=== PATIENT | female | born 1980 | race African-American/Black ===

== ENCOUNTER 2017-03-10 11:18 | Inpatient (IN) ==
[2017-03-10 12:25] LABS: AGAP 17; ALBUMIN 3.8 g/dL (3.5-5.0); ALKALINE PHOSPHATASE 53 U/L (32-104); BUN 7 mg/dL (8-22); CALCIUM 8.9 mg/dL (8.8-10.2); CHLORIDE 103 mmol/L (98-107); COSMO 279; GOT 18 U/L (10-30); GPT 20 U/L (10-36); POTASSIUM 3.6 mmol/L (3.5-5.1); SODIUM 140 mmol/L (136-145); TCO2 20 mmol/L (25-35); TOTAL BILIRUBIN 0.76 mg/dL (0.20-1.00); TOTAL PROTEIN 6.8 g/dL (6.3-8.3)
[2017-03-10 12:31] LABS: HEMOGLOBIN 3.4 g/dL (12.0-16.0)
--- NOTE | 2017-03-10 12:31 | Diag Imaging Result Doc PS360 ---
EXAM: CHEST-2 VIEWS INDICATION: cough TECHNIQUE: 2 views COMPARISON: None. FINDINGS: At the medial left lung base there is a thick-walled large air density lesion. This may actually represent a hiatal hernia. I suppose a thick-walled cavitary lesion is possible, however. The lungs are grossly clear, otherwise. There is no discrete pleural fluid collection or pneumothorax. The cardiomediastinal silhouette and central vasculature are grossly unremarkable. IMPRESSION: Hiatal hernia versus thick-walled cavitary lesion at the medial left lung base projecting behind the heart. Electronically signed by Nael Meeks 03/10/2017 12:29 PM
[2017-03-10 12:32] LABS: BASO% 0.6 % (0.0-0.8); EOS# 0.06 X1000 (0.0-0.7); EOS% 0.9 % (0.0-10.0); HEMATOCRIT 12.8 % (37.0-47.0); LYMPH# 2.21 X1000 (1.2-3.4); LYMPH% 32.1 % (20.5-51.1); MANUAL DIFF NEEDED? NO; MCH 16.7 PG (27-31); MCHC 26.6 g/dL (33-37); MCV 62.7 FL (81-99); MONO# 0.82 X1000 (0.11-0.59); MONO% 11.9 % (1.7-9.3); MPV 9.9 FL (7.4-10.4); NEUT% 54.5 % (42.2-75.2); PLT 481 X1000 (130-400); RBC 2.04 XMIL (4.2-5.4)
[2017-03-10 12:33] LABS: ALLEN TEST YES; BLOOD TYPE ARTERIAL; DRAW SITE R RADIAL; METHB 0.6 % (0.0-1.5); O2(CT) 5.1 mL/dL (15.0-23.0); PCO2(98.6) 31 mmHg (35-45); PO2(98.6) 86 mmHg (60-100); SAMPLE BLOOD; SAO2 99.6 % (95.0-100.0); THB 3.6 g/dL (11.5-17.4); pH(98.6) 7.49 (7.35-7.45)
[2017-03-10 12:34] LABS: MODALITY ROOM AIR
[2017-03-10] MEDS ORDERED: PEPCID IV ONE (12:35)
[2017-03-10] MEDS ORDERED: PROTONIX IV ONE (12:35)
[2017-03-10] MEDS ORDERED: SODIUM CHLORIDE 0.9% INJ ONE ×2 (12:35)
--- NOTE | 2017-03-10 12:53 | PROVIDER DOCUMENTATION ---
This chart was entered by Paula Cao Scribe, acting as scribe for Charles Rebolledo MD. HPI-General Adult - General Chief Complaint: Shortness of Breath Stated Complaint: RT SIDE PAIN,TIRED EASILY Time Seen by Provider: 03/10/17 11:36 Source: patient Allergies/Adverse Reactions: Patient Allergies Allergy/AdvReac Type Severity Reaction Status Date / Time No Known Allergies Allergy Verified 03/10/17 12:17 Home Medications: Home Medication List Medication Instructions Recorded Confirmed Last Taken Type NK [No Home Medications] 03/10/17 03/10/17 Unknown History - History of Present Illness -Gen Adult Nature of Presenting Problems: Pt is a 36 year old female who came to the ED with a cc of SOB and weakness for one week. Pt reports she has been having black stool Location of Pain/Injury: reports: none Pain Radiation: reports: no radiation Quality of Pain: reports: none Onset/Duration: reports: 1 week ago Timing: reports: still present Associated Symptoms: reports: shortness of breath, weakness Similar Symptoms Previously?: No Recently seen or treated by another doctor?: No Review of Systems - Adult - REVIEW OF SYSTEMS - ADULT Constitutional: denies: chills, fever Eyes: reports: no symptoms reported Ears, Nose, Mouth & Throat: reports: no symptoms reported Cardiovascular: denies: chest pain, irregular heart rate Respiratory: reports: cough, shortness of breath. denies: pleurisy, wheezing Gastrointestinal: reports: other (black stool). denies: diarrhea, nausea Genitourinary: denies: dysuria, urgency Musculoskeletal: denies: bone pain, joint swelling Integumentary: reports: no symptoms reported Neurological: reports: no symptoms reported Psychiatric: reports: no symptoms reported Endocrine: reports: no symptoms reported Hematologic/Lymphatic: reports: no symptoms reported Allergic/Immunologic: reports: no symptoms reported All Other Systems: Reviewed and Negative Past History - Adult - PAST MEDICAL HISTORY-ADULT Review of Records: reports: Old Records Reviewed, Nursing Assessment Review Major Childhood Illnesses: reports: denies history Cardiovascular: reports: denies history Respiratory: reports: denies history Gastrointestinal: reports: denies history Obstetrical/Gynecological: reports: denies history Genitourinary: reports: denies history Musculoskeletal: reports: denies history Neurological: reports: denies history Endocrine/Immune: reports: denies history Other Conditions: reports: denies history - IMMUNIZATION STATUS Childhood Immunizations: See Nurse Assessment Flu Vaccine: See Nurse Assessment - FAMILY HISTORY Family History: reviewed, not pertinent Physical Exam-General - PHYSICAL EXAM-ADULT Initial Vital Signs Reviewed: Yes - CONSTITUTIONAL General Appearance: appears well, alert, no apparent distress - EYES Eyes: pale conjunctivae - HEAD, EARS, NOSE, MOUTH & THROAT HENMT: normocephalic/atraumatic, moist mucous membranes - NECK Neck: non-tender, full range of motion - RESPIRATORY Respiratory: chest non-tender, crackles - CARDIOVASCULAR Cardiovascular: normal peripheral pulses, regular rate, rhythm - GASTROINTESTINAL (ABDOMEN) Abdominal Exam: normal bowel sounds, non tender, soft - MUSCULOSKELETAL Back Exam: normal inspection, no CVA tenderness Extremity: normal range of motion, non-tender - SKIN Integumentary: normal color, normal turgor - NEUROLOGIC Neurologic: grossly normal - PSYCHIATRIC Psych/Mental Status: normal mood/affect, normal thought content, normal thought process, oriented x 3 Progress - PLAN OF CARE/RESULTS Progress/Plan/Lab Results: Vital Signs - 8 hr 03/10/17 11:24 Temperature 97.9 F Pulse Rate 92 H Respiratory Rate 20 Blood Pressure 149/66 O2 Sat by Pulse Oximetry 100 Orders Category Date Time Status Saline Loc NOW Care 03/10/17 11:46 Active CHEST-2 VIEWS [RAD] Stat Exams 03/10/17 11:46 Taken ABG [RESP] Routine Lab 03/10/17 11:46 Ordered BLOOD CULTURE [BLDCUL] Stat Lab 03/10/17 12:09 Ordered CBC WITH DIFF [HEME] Stat Lab 03/10/17 11:45 Results COMPREHENSIVE METABOLIC PANEL [CHEM] Stat Lab 03/10/17 11:45 Received Result Diagrams: 03/10/17 11:45 03/10/17 11:45 - EKG 1 Time of EKG reading by physician:: 11:32 EKG Read and Signed by:: Parvez Montelongo EKG Interpretation (*Must complete 3 of following elements*): Normal Rate: 97 Rhythm: NSR - XRAY 1 XRAY Study: Chest Impression: Abnormal XRAY Interpretation: hiatal hernia - CONSULTS/PCP/HOSPITALIST Notification Time Discussed: 12:48 (Spoke with , did not have hospitalist name) Reason/Comments: Acute Gi bleed Consult Disposition: Admit Departure - Departure Date of Disposition Decision: 03/10/17 Time of Disposition Decision: 12:51 DIAGNOSIS: Iron deficiency anemia due to chronic blood loss, Hiatal hernia, Melena Disposition: ADMITTED INPATIENT 09 Certified Medical Emergency: Emergent Condition: Fair Referrals and Follow-Ups: None,PCP [Primary Care Provider] - - Critical Care Note This patient required my direct & personal management of CC.: No Attestation - Physician/ ROSAS Attestation Patient care was provided by Advanced Practice Provider:: No The physician spent face to face time with patient:: Yes Advanced Practice Provider documentation review:: Supervising physician onsite and consulted in the evaluation and care of this patient. The physician did have a face to face encounter with the patient. This chart was documented by the indicated scribe, (Paula Cao Scribe) and accurately reflects the services I performed and decisions made by me, Charles Rebolledo MD, as attested by the provider's signature.
[2017-03-10 12:55] LABS: RETIC% 1.87 % (0.8-2.1); RETIC-HE 13.4 PG (28.2-36.6)
[2017-03-10 13:18] LABS: IRON SATURATION 2 %; TIBC 454 ug/dL
[2017-03-10 13:22] LABS: TOTAL IRON 7 ug/dL (49-151); UNBOUND IRON 447 ug/dL (112-346)
[2017-03-10] MEDS ORDERED: NS 500 ML ONE ×2 (13:22→14:43)
[2017-03-10] MEDS ORDERED: ZOFRAN IV PRN (14:23)
[2017-03-10] MEDS ORDERED: PROTONIX 80 MG in NS 80 ML IV ONE (15:00)
--- NOTE | 2017-03-10 15:28 | EKG Report ---
Test Performed on : 03/10/2017 11:32:06 AM Test Reason : NO EKG ORDER Blood Pressure : / mmHG Vent. Rate : 097 BPM Atrial Rate : 097 BPM P-R Int : 152 ms QRS Dur : 076 ms QT Int : 362 ms P-R-T Axes : 038 013 034 degrees QTc Int : 459 ms Normal sinus rhythm. Normal ECG No previous ECGs available Unconfirmed Result
--- NOTE | 2017-03-10 15:54 | HISTORY AND PHYSICAL ---
PRIMARY CARE PHYSICIAN: None. CHIEF COMPLAINT: Weakness, shortness of breath. HISTORY OF PRESENT ILLNESS: This is a 36-year-old, female with a negative health history who presented to the emergency room complaining of about a week of black stools as well as dyspnea on exertion that has increased over the last 4 days. She states now that she can walk about 15 feet and become short of breath. If she walks much farther she states she does get dizzy. She can stop and rest and symptoms will go away. She denies any orthopnea, PND. She denies any prior episodes of melena or red stools. No coffee-ground emesis or vomiting blood. She does continue to have menstrual periods and she states that they have been unchanged going 2-3 days, and they are not exactly heavy. PAST MEDICAL HISTORY: Sickle cell trait. PAST SURGICAL HISTORY: Denies. SOCIAL HISTORY: Denies alcohol, tobacco, or illicit drug use. ALLERGIES: No known drug allergies. HOME MEDICATIONS: None. REVIEW OF SYSTEMS: A 14 point review of systems discussed with patient. Pertinent positives stated in HPI. She denied palpitations, chest pain, syncope, productive cough, fever, chills, any night sweats, persistent cough, any black or bloody vomitus, any bloody stools, any hematuria, dysuria, frequency, urgency. PHYSICAL EXAMINATION: GENERAL: This is a 36-year-old, female, who is sitting up in the bed with no distress. VITAL SIGNS: Blood pressure is 134/78 with a heart rate of 91, respirations are 15, temperature is 98.2 degrees with room air saturations of 99%-100%. HEENT: Head is normocephalic, atraumatic. Pupils are equal, round, react to light. EOMs are intact. Sclerae are anicteric, they are pale, with pale mucous membranes. NECK: Supple. Trachea midline. CARDIOVASCULAR: Regular rate and rhythm. S1, S2 appreciated. PULMONARY: She does have some crackles at the bases. Chest rises and falls symmetrically to respiration. No increased work of breathing noted. GASTROINTESTINAL: Soft, nontender, nondistended. Bowel sounds in all 4 quadrants. MUSCULOSKELETAL: Good range of motion of joints. BACK: No CVAT. No spine tenderness. SKIN: Warm and dry with good turgor. EXTREMITIES: No clubbing, cyanosis, or edema. Calves nontender. Pulses are palpable x4. NEUROLOGIC: She is alert and oriented x3. Cranial nerves 2-12 grossly intact. DIAGNOSTICS: WBC is 6.8, with hemoglobin 3.4, hematocrit 12.8, and platelets of 481,000. Sodium is 140, potassium 3.6, BUN 7, creatinine 1.1, with a glucose of 131. TIBC is 454, with iron of 7. Vitamin B12 430, folate 11.9. ASSESSMENT: 1. Acute gastrointestinal bleed. 2. Iron deficiency anemia due to chronic blood loss. 3. Dyspnea on exertion secondary to #1. 4. Melena times 4-5 days. 5. Hiatal hernia per chest x-ray. PLAN: She will be admitted to the hospital, placed on telemetry. She has been transfused 2 units of blood in the emergency room, a third is pending. We will recheck an hemoglobin and hematocrit at 8 o'clock tonight. She will be n.p.o. with ice chips, a Protonix drip. We will Hemoccult all stools. Of course, we will use sequential compression devices for deep venous thrombosis prophylaxis, giving no anticoagulation, and Protonix drip for gastrointestinal prophylaxis. Gastroenterology will be consulted. Further treatments pending hospital course. Dictated by LESLYE Aponte for Mark Hendrickson MD cc: LESLYE Aponte MD
[2017-03-10] MEDS: PROTONIX 80 MG in NS 80 ML IV SCH (18:30)
[2017-03-10 22:31] LABS: HEMATOCRIT 19.1 % (37.0-47.0); HEMOGLOBIN 5.6 g/dL (12.0-16.0)
[2017-03-10] MEDS: ICAR-C PO SCH (23:28)
[2017-03-10] MEDS: NS 1,000 ML IV SCH (23:29)
[2017-03-11] MEDS: PROTONIX 80 MG in NS 80 ML IV SCH ×3 (02:20→22:33)
[2017-03-11 07:05] LABS: HEMATOCRIT 24.1 % (37.0-47.0); HEMOGLOBIN 7.4 g/dL (12.0-16.0); MCH 22.8 PG (27-31); MCHC 30.7 g/dL (33-37); MCV 74.2 FL (81-99); MPV 9.3 FL (7.4-10.4); RBC 3.25 XMIL (4.2-5.4)
[2017-03-11 07:13] LABS: AGAP 11; BUN 7 mg/dL (8-22); CALCIUM 8.4 mg/dL (8.8-10.2); CHLORIDE 105 mmol/L (98-107); COSMO 275; POTASSIUM 4.1 mmol/L (3.5-5.1); SODIUM 139 mmol/L (136-145); TCO2 23 mmol/L (25-35)
[2017-03-11] MEDS: ICAR-C PO SCH ×2 (08:41→22:34)
[2017-03-11 13:05] LABS: HEMATOCRIT 24.7 % (37.0-47.0); HEMOGLOBIN 7.7 g/dL (12.0-16.0)
[2017-03-11 18:00] LABS: HEMATOCRIT 27.2 % (37.0-47.0); HEMOGLOBIN 8.4 g/dL (12.0-16.0)
[2017-03-11] MEDS: NS 1,000 ML IV SCH ×2 (18:18→22:33)
--- NOTE | 2017-03-11 21:01 | PROGRESS NOTE ---
DATE: 03/11/2017 SUBJECTIVE: The patient describes no further bleeding. OBJECTIVE: Vital Signs: Blood pressure is 131/75, heart rate 73, respiratory rate 18, temperature 98.4. Cardiovascular: Regular rate and rhythm. Pulmonary: Bilateral breath sounds. Clear to auscultation. Gastrointestinal: Soft, nontender, nondistended. Bowel sounds are positive. Extremities: No clubbing or cyanosis. Lymphatics: No peripheral edema. Neurological: Nonfocal. LABORATORY DATA: Her hemoglobin and hematocrit has come up to 8 and 27. That is after 5 units of blood. PROBLEM LIST: 1. Gastrointestinal bleed. Dr. Muhammad has evaluated the patient. She is on Protonix. Plan for EGD, possible colonoscopy tomorrow, and we will clinically monitor. She is on IV proton pump inhibitor. 2. Anemia, symptomatic, iron deficiency. We will need to start iron when she stabilizes. I am going to go ahead and start some iron on her, but Dr. Muhammad has evaluated and is also concerned about possibly a WHEEL PRESSER source of bleeding, so we will continue to follow and pursue pelvic ultrasound tomorrow. DISPOSITION: Pending clinical course and endoscopic findings. cc: Mark Hendrickson MD
[2017-03-12 01:15] LABS: HEMATOCRIT 25.5 % (37.0-47.0); HEMOGLOBIN 7.9 g/dL (12.0-16.0)
[2017-03-12 06:24] LABS: AGAP 12; BUN 8 mg/dL (8-22); CALCIUM 8.6 mg/dL (8.8-10.2); CHLORIDE 108 mmol/L (98-107); COSMO 284; POTASSIUM 4.3 mmol/L (3.5-5.1); SODIUM 143 mmol/L (136-145); TCO2 23 mmol/L (25-35)
[2017-03-12] MEDS: PROTONIX 80 MG in NS 80 ML IV SCH ×2 (08:28→23:41)
[2017-03-12] MEDS: NS 1,000 ML IV SCH ×2 (11:23→20:20)
[2017-03-12] MEDS: ICAR-C PO SCH ×2 (11:23→20:20)
[2017-03-12] MEDS ORDERED: GOLYTELY PO ONE (12:46)
[2017-03-12 12:53] LABS: HEMATOCRIT 28.7 % (37.0-47.0); HEMOGLOBIN 8.8 g/dL (12.0-16.0); MCH 22.4 PG (27-31); MCHC 30.7 g/dL (33-37); MPV 10.1 FL (7.4-10.4); RBC 3.93 XMIL (4.2-5.4)
[2017-03-12] MEDS ORDERED: VANCOMYCIN IV PER PHARMACY MISC SCH (13:30)
--- NOTE | 2017-03-12 14:48 | Diag Imaging Result Doc PS360 ---
EXAM: US PELVIC NON-OPTICAL COATING TECHNICIAN COMPLETE - 03/12/2017 HISTORY: menorrhagia TECHNIQUE: Exam performed using transabdominal probe. According to the technologist, no transvaginal imaging could be performed due to the patient's body habitus. COMPARISON: None. FINDINGS: The uterus measures 11.9 x 6 x 5.2 cm in size. The dual layer endometrial thickness measures 3 mm. There is no uterine lesion identified. The bilateral ovaries are visualized and demonstrate blood flow signal Doppler images. There is no adnexal mass or free fluid identified. IMPRESSION: No visible abnormality. Electronically signed by Nicolas Flores 03/12/2017 2:46 PM
[2017-03-12] MEDS: VANCOMYCIN 2,000 MG in NS 500 ML IV SCH (15:08)
--- NOTE | 2017-03-12 18:32 | PROGRESS NOTE ---
DATE: 03/12/2017 SUBJECTIVE: Patient has no focal complaints. OBJECTIVE: Vital signs: Blood pressure 140/68, heart rate 78, respiratory rate 18, temperature 93 to 98% on room air. Cardiovascular: Regular rate and rhythm. Pulmonary: Bilateral breath sounds. Clear to auscultation. GI: Soft, nontender, nondistended. Bowel sounds are positive. LABORATORY DATA: Most recent hemoglobin and hematocrit is 8.8 and 28.7. Chemistries look intact. PROBLEM LIST: 1. Gastrointestinal bleed. Likely upper source. She is on a Protonix infusion. Plan per Dr. Muhammad will be EGD and colonoscopy tomorrow. Continue fluids and follow. 2. Iron-deficiency anemia. Likely related to gastrointestinal source. Pelvic ultrasound was ordered and was unremarkable. So I think this is purely a gastrointestinal source. Disposition pending clinical factors. 3. Blood cultures were obtained. 08/08 was positive. I think this is likely a contaminant. She really has no other indices of infection. I think she has had a white count and I do not think she has had a fever. I have put her on vancomycin, but I think that can be stopped if is a coagulase-negative Staph or contaminant. cc: Mark Hendrickson MD
--- NOTE | 2017-03-12 21:54 | CONSULTATION ---
DATE OF CONSULTATION: 03/10/2017 REASON FOR CONSULTATION: Severe anemia and history of melena. HISTORY OF PRESENT ILLNESS: This 36-year-old lady who has no past history of GI bleed on any other health problems has been noticing her stools being dark color for the past 4-5 days, but she was feeling extremely short of breath getting out of the car and going to the ER felt like it was like one mile walk. She came to [place] [facility] and was admitted for further evaluation. She has no hematemesis. Her menstrual periods are short and not heavy she says. PAST MEDICAL HISTORY: History of sickle cell trait. PAST SURGICAL HISTORY: None. SOCIAL HISTORY: Does not smoke or drink or use any drugs. ALLERGIES: None. HOME MEDICATIONS: None. REVIEW OF SYSTEMS: Negative other than the above, except shortness of breath, but denies any chest pain, or syncopal episodes. PHYSICAL EXAMINATION: General: Revealed this pleasant lady. Obese, but comfortable, in no acute distress. Vital Signs: Blood pressure 130/70, heart rate 90, respirations 15, temperature is 98 degrees, O2 saturation 99% on room air. HEENT: Marked conjunctival pallor present. Neck: Supple. Trachea in the midline. Heart: Normal first and second heart sounds. Lungs: Clear. Abdomen: No organomegaly. No ascites. Bowel sounds present and normal. Extremities: Unremarkable. No cyanosis or clubbing. Neurological: Alert and oriented. LABORATORY: The initial labs were hemoglobin 3.4 and 12.8. By the time I have seen her, the hematocrit is up to 19, platelets are normal. Sodium, potassium, BUN and creatinine was normal. TIBC: Iron is low. B12 and folate are normal. IMPRESSION: 1. History of malaise and possible acute gastrointestinal blood loss. 2. Severe microcytic anemia with no clear history of menorrhagia, appears to be chronic. 3. Exercise intolerance and dyspnea related to anemia. 4. Patient does have a hiatal hernia on the chest x-ray. RECOMMENDATION: Continue to transfuse and monitor and probably needs gynecological workup and complete gastrointestinal workup, including colonoscopy and EGD. We will plan further electively. Patient is feeling much better after transfusion and will continue to monitor signs. cc: Claudette Muhammad MD
--- NOTE | 2017-03-12 22:00 | PROGRESS NOTE ---
DATE: 03/11/2017 SUBJECTIVE: The patient is feeling much better. She can breath normally, go to the bathroom without dyspnea. Denies any melena or hematemesis. OBJECTIVE: Vital Signs: Blood pressure 140/60, heart rate 78, respirations 18, temperature 98.6, O2 saturation 98% on room air. HEENT: No scleral icterus. Conjunctival pallor present. Neck: Supple. Trachea midline. Heart: Normal. Lungs: Normal. Abdomen: Benign. No organomegaly. No ascites. Extremities: Unremarkable. LABORATORY DATA: Hemoglobin and hematocrit is up to 8.8 and 28. All the chemistries are normal. IMPRESSION AND PLAN: 1. Severe iron deficiency anemia with microcytic indices. 2. History of melena. We are planning to do an EGD and colonoscopy. 3. One positive blood culture out of 2, because she has a minor temperature increase during transfusion, but this can be a contaminate. 4. Talked to Dr. Hendrickson, and he will do a pelvic ultrasound as well to rule out any fibroids. 5. Will follow. cc: Claudette Muhammad MD
[2017-03-13 05:57] LABS: HEMATOCRIT 26.2 % (37.0-47.0); HEMOGLOBIN 7.8 g/dL (12.0-16.0); MCH 22.4 PG (27-31); MCHC 29.8 g/dL (33-37); MCV 75.3 FL (81-99); MPV 9.9 FL (7.4-10.4); RBC 3.48 XMIL (4.2-5.4)
[2017-03-13 06:27] LABS: AGAP 13; BUN 3 mg/dL (8-22); CALCIUM 8.9 mg/dL (8.8-10.2); CHLORIDE 106 mmol/L (98-107); COSMO 278; POTASSIUM 4.1 mmol/L (3.5-5.1); SODIUM 141 mmol/L (136-145); TCO2 22 mmol/L (25-35)
[2017-03-13] MEDS: NS 1,000 ML IV SCH (07:43)
[2017-03-13] MEDS: PROTONIX 80 MG in NS 80 ML IV SCH ×2 (07:44→16:06)
[2017-03-13] MEDS ORDERED: MYLICON DROPS ONE (09:23)
[2017-03-13] MEDS: ICAR-C PO SCH ×2 (09:27→21:58)
[2017-03-13] MEDS ORDERED: FENTANYL ONE (09:36)
[2017-03-13] MEDS ORDERED: VERSED ONE (09:36)
[2017-03-13] MEDS ORDERED: DIPRIVAN 1% ONE ×2 (09:36→09:57)
[2017-03-13] MEDS ORDERED: XYLOCAINE-MPF 2% ONE (09:44)
[2017-03-13] MEDS: VANCOMYCIN 2,000 MG in NS 500 ML IV SCH (12:14)
[2017-03-13] MEDS ORDERED: SODIUM CHLORIDE 0.9% INJ SCH ×2 (13:00→14:45)
[2017-03-13] MEDS ORDERED: PROTONIX IV SCH (14:16)
--- NOTE | 2017-03-13 18:18 | PROGRESS NOTE ---
DATE: 03/13/2017 SUBJECTIVE: The patient just returned from endoscopy. She does complain of some abdominal pain. OBJECTIVE: Vital Signs: Temperature 98.4 degrees, blood pressure 132/76, heart rate 74, respirations 16, O2 saturation is 97% on room air. General: This is a morbidly obese female, lying in bed, in no acute distress. Head: Normocephalic, atraumatic. Heart: S1, S2. Normal. Regular rate and rhythm. Lungs: Clear to auscultation bilaterally. No wheezes. No rales. No rhonchi. Abdomen: Positive bowel sounds. Soft, obese, nontender, nondistended. Extremities: No edema. No cyanosis. No calf tenderness. Neurologic: The patient is alert and oriented x3. LABS: White blood cell count 7.4, hemoglobin 7.8, hematocrit 26, platelets 334, 000. Sodium 141, potassium 4.1, chloride 106, CO2 22, BUN 3, creatinine 0.9, glucose 98. ASSESSMENT AND PLAN: 1. Gastrointestinal bleed. The patient had an endoscopy today that revealed erosive gastritis and a large hiatal hernia. No obvious source of bleeding was found. Advance diet as tolerated. 2. Severe iron deficiency anemia. Continue on Icar-C. 3. Morbid obesity. Aware. cc: Luna Mann MD MTDD
--- NOTE | 2017-03-13 18:43 | OPERATIVE NOTE ---
PROCEDURE DATE: 03/13/2017 ATTENDING SURGEON: Federico Quevedo MD. PROCEDURE: 1. Esophagogastroscopy. 2. Ileal colonoscopy. PREOPERATIVE DIAGNOSES: 1. Chronic macrocytic anemia. 2. Reflux disease. 3. History of occasional use of nonsteroidal anti-inflammatory drugs. POSTOPERATIVE DIAGNOSES: 1. Normal esophagus, entire length. 2. Z-line was at 35 cm. 3. Evidence of sliding hiatal hernia measuring 7-8 cm. 4. Mild erosive gastritis in the antrum and the body. 5. Normal incisura on retroflexion. Otherwise hiatal hernia on retroflexion/ 6. Normal duodenal bulb and 2nd portion of duodenum. 7. Normal terminal ileum. 8. Some stool in the colon. 9. Some mild hemorrhoids internal on retroflexion. 10. Some scattered diverticulosis left colon. ESTIMATED BLOOD LOSS: None. COMPLICATIONS: None. ANESTHESIA: Monitored anesthesia care. SPECIMENS: None. DESCRIPTION OF PROCEDURE: After informed consent from the patient, explaining the risks, benefits, indications, alternatives, the patient was prepared for EGD and colonoscopy. The patient was brought to the OR. She was turned to left lateral position. A bite block was placed in the patient's mouth. After adequate monitored anesthesia care, the upper scope was introduced through the oral vestibule all the way to the second portion of the duodenum. Esophagus was normal in the proximal and middle third.The Distal esophagus showed evidence of Z-line at 35 cm with evidence of large sliding hiatal hernia measuring 7-8 cm. This likely is the cause of patient's chronic microcytic anemia. The scope was introduced in the stomach. The patient had mild erythema and erosions in the body and antrum, with erosive gastritis. Otherwise the stomach appeared normal Retroflexion showed large hiatal hernia. We did not visualize any evidence of ulcerations or any bleeding stigmata in the stomach/HH area. There was evidence of normal duodenal bulb and second portion of the duodenum. Air was removed as the scope was withdrawn. The patient then was turned around. Rectal exam was performed and revealed normal rectum, no masses felt. The colonoscope was introduced and was traversed all the way to the terminal ileum. The terminal ileum appeared normal. There was evidence of some stool in the right colon, which was lavaged. There was some scattered diverticulosis in the left colon. There were internal hemorrhoids grade 2 on retroflexion. There was no evidence of any colitis or any AVMs or any active bleeding, fresh or old blood in the colon. The air was removed as the scope was withdrawn. The patient tolerated the procedure well and is currently being monitored in the OR in stable condition. RECOMMENDATIONS: 1. The patient will need a surgical consult for the large hiatal hernia as this is likely the cause of the patient's chronic macrocytic anemia. 2. Patient will be on a multivitamin once a day. 3. The patient will be on Prilosec 40 mg once a day for 3 months, then she can be on Zantac twice daily. 4. Patient will be on Iron C b.i.d. 5. The patient will need to follow gastroesophageal reflux disease. 6. The patient need to increase fiber intake and avoid excessive corn, nuts, and seeds in diet. 7. Further recommendations pending hospital course. cc: Federico Quevedo MD MTDD
[2017-03-14 06:00] LABS: HEMOGLOBIN 8.1 g/dL (12.0-16.0); MCH 22.7 PG (27-31); MCV 75.6 FL (81-99); MPV 9.9 FL (7.4-10.4); RBC 3.57 XMIL (4.2-5.4)
[2017-03-14] MEDS: VANCOMYCIN 2,000 MG in NS 500 ML IV SCH (06:18)
[2017-03-14 06:26] LABS: AGAP 12; BUN 6 mg/dL (8-22); CHLORIDE 107 mmol/L (98-107); COSMO 281; POTASSIUM 3.9 mmol/L (3.5-5.1); SODIUM 142 mmol/L (136-145); TCO2 23 mmol/L (25-35)
[2017-03-14] MEDS ORDERED: PROTONIX IV SCH (07:00)
[2017-03-14 07:43] VITALS: BP 125/68
[2017-03-14] MEDS: ICAR-C PO SCH (08:19)
[2017-03-14] MEDS ORDERED: THERA M PLUS PO SCH (09:00)
--- NOTE | 2017-03-14 09:26 | PROGRESS NOTE ---
DATE: 03/12/2017 SUBJECTIVE: The patient feels great. No complaints. We just started her on clear liquids and Colyte prep for complete colonoscopy and EGD. OBJECTIVE: Vital Signs: Stable. There is no scleral icterus. Conjunctival pallor present. Neck: Supple. Trachea midline. Heart: Normal. Lungs: Normal. Abdomen: Benign. No organomegaly. No ascites. Extremities: Unremarkable. LABORATORY STUDIES: Hematocrit is stable. IMPRESSION: 1. Marked microcytic anemia and iron deficiency secondary to chronic blood loss. It is not clear if she has Jomar lesions from hiatal hernia, but she does give a history of some melena in the last few days. 2. Pelvic ultrasound is normal. Talking to her, she does not have any menorrhagia. 3. Gastrointestinal prophylaxis. 4. Continue the prep. We will examine both colon and stomach, and find out where she is losing blood. We will also check if she has any intraoperative problems, which is unlikely. -0 cc: Claudette Muhammad MD
--- NOTE | 2017-03-14 11:39 | CONSULTATION ---
DATE OF CONSULTATION: 03/14/2017 REQUESTING PHYSICIAN: Dr. Vivas. Consult concerning large hiatal hernia causing potential anemia. HISTORY OF PRESENT ILLNESS: A 36-year-old female with a history of sickle cell trait. Presented to the emergency department with black tarry stools and dyspnea on exertion. She was found to be severely anemic. She was given blood and underwent an EGD and colonoscopy by Dr. Quevedo yesterday. During that time, she was found to have a large hiatal hernial which by description sounds like a type 3 hiatal hernia. No other obvious sources of bleeding were noted. She denies any kind history of dysphagia, difficulty swallowing, any kind of early satiety or other issues to suggest that she has issues with functioning and physiologic function of her esophagus or stomach. I was asked to evaluate her given her anemia and her known hiatal hernia. PAST MEDICAL HISTORY INCLUDES: Sickle cell trait. PAST SURGICAL HISTORY INCLUDES: Includes tubal ligation. SOCIAL HISTORY: Denies alcohol, tobacco or illicit drugs. ALLERGIES: None. HOME MEDICATIONS: None. REVIEW OF SYSTEMS: A full 10 point review of systems obtained, negative as specified in HPI. PHYSICAL EXAMINATION: Vital Signs: Patient is currently afebrile. Her vital signs are stable. General: No acute distress. Alert, interactive, female looks stated age. BMI calculated at 49.1. HEENT: Normocephalic, atraumatic. Pupils equally round, reactive to light. Mucous membranes moist. Oropharynx benign. Neck: Supple. Trachea midline. Cardiovascular: Regular rate and rhythm. Lungs: Grossly clear. Abdomen: Soft, nontender, nondistended. Extremities: Moves all extremities. Neurologic: Grossly intact. Skin: No signs of jaundice. Vascular: All extremities perfused. LABORATORY: Reviewed from this morning. Hematocrit is up to 27. She still has a MCV of 75.6. Remainder of labs reviewed. Imaging including chest x-ray reviewed showed a hiatal hernia. ASSESSMENT/PLAN: A 36-year-old, female with a large type 3 hiatal hernia causing macrocytic anemia and a BMI of almost 50. 1. Hiatal hernia. At this time, given her symptoms she may be a candidate for surgical repair although given her size and BMI approaching 50 this might make her surgical risk increased. Regardless she has no active bleeding. I think we could manage her as an outpatient to discuss surgical intervention in an outpatient setting. I will have her follow up with me in the office in 1-2 weeks after she is discharged. Clinically she is stable having no signs of dysphagia or any kind of functional issue with this hiatal hernia. 2. BMI of 49. Again as noted above this does complicate her perioperative surgical issues. Discussed this with the patient. I do not think it means we cannot do any surgery but we did discuss that it may cause more issues in the postoperative period. All this was discussed with the patient. Again I appreciate the consult and I will see the patient again as an outpatient. cc: Deven Huggins MD
--- NOTE | 2017-03-25 14:09 | DISCHARGE SUMMARY ---
ADMISSION DATE: 03/10/2017 DISCHARGE DATE: 03/14/2017 FINAL DISCHARGE DIAGNOSES: 1. Large hiatal hernia. 2. Gastrointestinal bleed. 3. Erosive gastritis. 4. Morbid obesity. 5. Severe iron deficiency anemia. CONSULTATIONS REQUESTED DURING THIS HOSPITAL STAY: 1. GI consultation with Dr. Muhammad. 2. General Surgery consultation with Dr. Huggins. PROCEDURES PERFORMED DURING THIS HOSPITAL STAY: Esophagogastroduodenoscopy with ileal colonoscopy which revealed mild erosive gastritis and a large hiatal hernia as well as mild internal hemorrhoids. HOSPITAL COURSE: Ms. Olguin is a 36-year-old female with a history of morbid obesity, who presented to the ER with a chief complaint of shortness of breath and black hard stools. On admission, the patient was noted to have a hemoglobin of 3.4 with a hematocrit of 12. The patient was admitted with a GI bleed and GI was consulted. Also a pelvic ultrasound was done which was noted to be unremarkable. It was thought that the patient's severe iron deficiency anemia was the result of GI source of bleeding. The patient was taken for endoscopy and it was discovered that the patient had an erosive gastritis as well as a large sliding hiatal hernia. The patient's blood count improved with iron supplementation and blood transfusions during the hospital stay. General Surgery was consulted for possible surgical intervention for the hiatal hernia and it was recommended that the patient follow up as outpatient to further discuss the procedure. On the day of discharge, the patient was noted to have a hemoglobin of 8.1 and a hematocrit of 27, and the patient was no longer having dark tarry stools. DISCHARGE MEDICATIONS: 1. Icar-C 1 tab oral twice a day. 2. Protonix 40 mg p.o. daily. DISCHARGE DIET: Low-fat, low-cholesterol diet. ACTIVITY: As tolerated. FOLLOW-UP INSTRUCTIONS: The patient will need to follow up with Dr. Huggins as scheduled by his clinic. The patient will need to follow up with Dr. Quevedo in 3 weeks. cc: Luna Mann MD
== END 2017-03-14 12:19 | disposition home or self-care (01) ==
LOC: ED 11:18 → 4N 14:10 → SUATTDRO 14:10
PROVIDERS: ATTEND Internal Medicine